=== PATIENT | female | born 1990 | race Caucasian/White ===

== ENCOUNTER 2020-11-03 07:40 | Outpatient (REF) | payer OTHER, SELFPAY | END 2020-11-03 07:41 | disposition home or self-care (01) | LOC: HO.LAB 07:40 | PROVIDERS: Visit Provider Internal Medicine | DX: Z20.828 Contact with and (suspected) exposure to other viral communicable diseases (principal) | CPT/HCPCS: C9803; U0003 ==

== ENCOUNTER 2020-12-01 08:18 | Outpatient (REF) | payer OTHER, SELFPAY | END 2020-12-01 08:19 | disposition home or self-care (01) | LOC: HO.LAB 08:18 | PROVIDERS: Visit Provider Internal Medicine | DX: Z20.822 Contact with and (suspected) exposure to COVID-19 (principal) | CPT/HCPCS: 36415; C9803; U0003 ==

== ENCOUNTER 2021-01-19 08:07 | Outpatient (REF) | payer OTHER, SELFPAY | END 2021-01-19 08:08 | disposition home or self-care (01) | LOC: HO.LAB 08:07 | PROVIDERS: Visit Provider Internal Medicine | DX: Z20.822 Contact with and (suspected) exposure to COVID-19 (principal) | CPT/HCPCS: 36415; C9803; U0003; U0005 ==

== ENCOUNTER 2022-08-04 10:25 | Outpatient (REF) | payer OTHER, SELFPAY ==
[2022-08-04 11:15] LABS: COVID-19 Test Positive (Negative); IDNOW Serial# 55D5AD1C
== END 2022-08-04 10:26 | disposition home or self-care (01) ==
LOC: HO.LAB 10:25
PROVIDERS: Visit Provider Internal Medicine
DX: Z20.822 Contact with and (suspected) exposure to COVID-19 (principal)
CPT/HCPCS: 87635; C9803

== ENCOUNTER 2024-09-27 10:38 | Emergency (ER) | payer OTHER, SELFPAY ==
--- NOTE | 2024-09-27 | ECG_ITS ---
Test Reason : ABDOMINAL PAIN Blood Pressure : / mmHG Vent. Rate : 080 BPM Atrial Rate : 080 BPM P-R Int : 152 ms QRS Dur : 082 ms QT Int : 376 ms P-R-T Axes : 048 033 012 degrees QTc Int : 433 ms Normal sinus rhythm Cannot rule out Anterior infarct , age undetermined Abnormal ECG No previous ECGs available Referred By: Dee Barton Electronically Signed By:ROBERTO NAPIER
--- NOTE | ~2024-09-27 | US_ITS ---
EXAMINATION: US ABDOMEN LIMITED CLINICAL INFORMATION: Right upper quadrant pain. COMPARISON: None available. TECHNIQUE: Real-time imaging of the right upper quadrant abdominal viscera. FINDINGS: PANCREAS: The tail of the pancreas associated with overlying bowel gas. The visualized pancreas appears unremarkable. LIVER: The liver is normal in size. The liver contour is normal. Parenchymal echogenicity is normal. No focal hepatic lesion. There is no intrahepatic biliary duct dilatation seen. GALLBLADDER: The gallbladder is physiologically distended without evidence of stones, sludge, polyps, wall thickening or pericholecystic fluid. COMMON BILE DUCT: Normal in caliber measuring 0.2 cm in diameter. RIGHT KIDNEY: No hydronephrosis. No renal calculi or focal parenchymal lesions. The kidney measures 12.3 cm in maximum dimension. FREE FLUID: None. US/US abdomen limited IMPRESSION: No cholelithiasis or sonographic evidence of acute cholecystitis. Electronically signed by: Ezequiel Faulkner MD 09/27/2024 01:14 PM EDT
[2024-09-27 10:41] VITALS: BP 130/100; PULSE 91; O2SAT 99
--- NOTE | 2024-09-27 12:32 | ED.GENADULT ---
HPI - General Adult General Chief complaint: Abdominal Pain Stated complaint: ABD PAIN X3D,N/V PER EMS Time Seen by Provider: 09/27/24 17:55 Source: patient and RN notes reviewed Mode of arrival: ambulatory Limitations: no limitations History of Present Illness ED Provider: Dee Barton PA-C HPI narrative: This is a 34-year-old female who presents emergency department with complaints of acute onset of upper abdominal pain with an episode of nausea and vomiting. Patient states that she was sitting work when she suddenly developed epigastric pain, nausea and vomited once. She states that the pain initially was a 10/10 pain which was constant for several hours however alleviated down to a 7/10. She reports that she had a similar episode several days ago which resolved after taking meclizine. She denies any fevers, chills, diarrhea, chest pain, shortness of breath. Denies any urinary symptoms. No bloody or black stool. No urinary symptoms No other complaints or concerns at this time. MD complaint: Abdominal Onset (ago): hour(s) Quality: aching Relieving factors: none Exacerbating factors: none Associated symptoms: denies other symptoms Treatments prior to arrival: none Related Data Previous Rx's ?Medication ?Instructions ?Recorded aluminum-mag hydroxide-simethicone 5 ml PO 5XD #300 mL 09/27/24 200 mg-200 mg-20 mg/5 mL oral susp (Maalox Advanced) omeprazole 20 mg capsule,delayed 20 mg PO DAILY 2 weeks #14 caps 09/27/24 release Allergies Allergy/AdvReac Type Severity Reaction Status Date / Time No Known Allergies Allergy Verified 09/27/24 12:35 Review of Systems Review of Systems: Yes all other systems are reviewed and are negative Constitutional: Constitutional: Reports as per HPI [facility] Past Medical History Attestation statement: The following information was validated with the patient. Social History Social History Alcohol intake: never Smoked in Last 30 Days: No Use of substances other than those prescribed or required for medical reasons: No Advance Directives: No Advance Directives Information Provided: Yes Physical Exam ED Vital Signs: Vital Signs - 24 hr 09/27/24 12:33 09/27/24 16:55 09/27/24 17:57 Temperature 98.4 F 96.6 F L 98 F Pulse Rate 85 87 73 Respiratory Rate 16 16 18 Blood Pressure 112/72 119/65 125/72 Pulse Oximetry 100 100 97 Oxygen Delivery Method Room Air Room Air Room Air 09/27/24 20:24 Temperature 97.7 F Pulse Rate 75 Respiratory Rate 20 Blood Pressure 121/79 Pulse Oximetry 98 Oxygen Delivery Method Room Air BMI result Body Mass Index 31.9 Const General: cooperative, comfortable and no acute distress Orientation/consciousness: patient oriented x3 Limitations: no limitations HENMT Head: Yes normal to inspection, Yes normocephalic and Yes atraumatic Ears: hearing grossly normal bilaterally General nose exam: Normal external nose present Face and sinus: Yes normal facial exam Mouth: Normal oral and palatal mucosa present, oropharynx normal and moist mucous membranes Throat: Yes posterior oropharynx normal Eyes General: appearance normal, both eyes and all related structures Eyelids: Yes eyelids normal Conjunctivae: conjunctivae normal Sclerae: sclerae normal Pupils: Equal, round and reactive pupils present EOM: EOMs intact bilaterally Neck Neck: Yes normal visual inspection, Yes full ROM and Yes no lymphadenopathy Lymphatic: no lymphadenopathy noted Chest Chest palpation & inspection: normal inspection of the chest Resp Effort & Inspection: normal respiratory effort and able to speak in complete sentences Auscultation: clear to auscultation bilaterally, no crackles, no rales, no rhonchi and no wheezes Cardio Rate: regular rate Rhythm: regular rhythm Heart sounds: S1 normal heart sound present and S2 normal heart sound present GI Other: Abdomen is soft, with tenderness palpation in the epigastrium, no right upper quadrant pain, no other tenderness palpation. No suprapubic tenderness, no rebound or guarding Inspection: Yes normal to inspection Skin General skin exam: no rashes or lesions noted Trauma: no lacerations or abrasions Wounds: no wounds Neuro General: patient oriented x3 and moves all extremities Cranial nerves: Yes Equal, round and reactive pupils present Extrem General: Yes normal to inspection Right upper extremity: normal to inspection Left upper extremity: normal to inspection Right lower extremity: normal to inspection Left lower extremity: normal to inspection Course Course Course Narrative: RME, this is a rapid medical exam performed by Demond Gill please refer to primary provider for complete H&P- 34 year old female presents for evaluation of upper abdominal pain that radiates through to the back. Symptoms started a couple of days ago. She has associated nausea, vomiting. No fevers or chills. Plan for labs including lipase. We will start with right upper quadrant ultrasound. Will defer any further advanced imaging to primary ER provider Reevaluation(s) Reevaluation #1: Ultrasound reviewed, no acute findings. Discussed with patient. She was medicated with a GI cocktail. Reevaluation #2: Patient re-evaluated, feeling much better, her symptoms have resolved after drinking GI cocktail. Symptoms consistent with gastritis. Discussed strict return precautions. She understands agrees with plan. Patient stable for discharge. Medications Administered Discontinued Medications Generic Name Dose Route Start Last Admin Trade Name Freq PRN Reason Stop Dose Admin Al Hydroxide/Mg Hydroxide 30 ml 09/27/24 18:06 09/27/24 18:27 Magnesium Hydrox/Alum Hydrox 30 Ml Oral.Susp PO 09/27/24 18:07 30 ml ONCE ONE Administration Belladonna Alkaloids/Phenobarbital 10 ml 09/27/24 18:06 09/27/24 18:27 Phenobarb/Hyoscy/Atropine/Scop 10 Ml Elixir PO 09/27/24 18:07 10 ml ONCE ONE Administration Lidocaine HCl 15 ml 09/27/24 18:06 09/27/24 18:27 Lidocaine Hcl Viscous 2 % 15 Ml Solution MUCOUS MEM 09/27/24 18:07 15 ml ONCE ONE Administration Medical Decision Making Medical Decision Making [facility] Narrative: This is a 34-year-old female who presents emergency department with complaints of epigastric pain for the last several hours. She also endorses nausea and 1 episode of vomiting. On arrival, vital signs within normal limits, she is speaking full sentences under no acute distress. Abdomen is soft with tenderness palpation in the epigastrium, no rebound or guarding. Differential diagnoses include cholecystitis, cholangitis, gastritis, gastroenteritis. Less likely ACS. Plan: Labs, EKG, ultrasound Differential Diagnosis Differential Diagnoses: The differential diagnosis associated with the presentation includes See above Admission/Observation Consideration of admission/observation: Escalation of care including admission/observation considered Observation care revealed that the patient [does or does not meet] medical necessity for hospitalization. Final disposition discussed with the patient. The patient completed observation care at [time], total time in observation care was [hours] Lab Data [facility] Lab Attestation statement: I reviewed the patient's lab results. No leukocytosis, stable H&H, chemistry within normal limits, no electrolyte derangement. She is not . Troponin less than 2.7, negative viral swabs 09/27/24 12:40 09/27/24 12:40 Labs: Lab Results 09/27/24 Range/Units 12:40 WBC 8.4 (4.8-10.8) X10*3/uL RBC 4.78 (4.20-5.50) X10*6/uL Hgb 13.5 (12.0-16.0) g/dl Hct 39.7 (37.0-47.0) % MCV 83.1 (80.0-98.0) fL MCH 28.2 (27.0-33.0) pg MCHC 34.0 (31.0-35.0) g/dl RDW 12.3 (11.0-16.0) % Plt Count 329 (160-400) X10*3/uL MPV 9.5 (9.4-12.3) fL Immature Gran % (Auto) 0.2 (0.0-0.4) % Neut % (Auto) 73.0 (45-73) % Lymph % (Auto) 18.9 L (20-40) % [place] % (Auto) 5.3 (2-11) % Eos % (Auto) 2.0 (0-4) % Baso % (Auto) 0.6 (0-2) % Lymph # (Auto) 1.6 (1.2-4.9) X10*3/uL [place] # (Auto) 0.4 (0.1-1.2) X10*3/uL Eos # (Auto) 0.2 (0.0-0.4) X10*3/uL Baso # (Auto) 0.1 (0.0-0.2) X10*3/uL Abs Immat Gran (auto) 0.02 (0.00-0.03) X10*3/uL Absolute Neuts (auto) 6.1 (2.0-8.3) x10*3/uL Absolute Nucleated RBC 0.000 (0.0-0.012) X10*3/uL Nucleated RBC % (auto) 0.0 (0.0-0.2) /100WBC Sodium 139 (135-145) mmol/L Potassium 4.2 (3.3-5.1) mmol/L Chloride 109 H (96-108) mmol/L Carbon Dioxide 23 (22-29) mmol/L Anion Gap 11 L (12-20) BUN 8 L (9-16) mg/dL Creatinine 0.68 (0.5-1.4) mg/dL Estim Creat Clear Calc 116.8 Estimated GFR > 60 Random Glucose 88 (60-115) mg/dL Calcium 9.6 (8.4-10.2) mg/dL Total Bilirubin 0.3 (0.0-1.0) mg/dL AST 21 (5-31) U/L ALT 15 (0-31) U/L Alkaline Phosphatase 63 (39-117) U/L Troponin I High Sens < 2.7 (<3.5-17.0) ng/L Total Protein 8.0 (6.5-8.0) g/dL Albumin 4.4 (3.5-5.0) g/dL Lipase 33 (8-78) U/L Beta HCG, Quant < 2 mIU/mL Influenza Type A (PCR) NEGATIVE (Negative) Influenza Type B (PCR) NEGATIVE (Negative) RSV RNA Qual (PCR) NEGATIVE (Negative) SARS-CoV-2 RNA (RT-PCR) NEGATIVE (Negative) Radiology Impression Discussion of test interpretation with radiology: I have reviewed the radiologist's reading. Radiologist Impression: US/US abdomen limited IMPRESSION: No cholelithiasis or sonographic evidence of acute cholecystitis. Electronically signed by: Ezequiel Faulkner MD 09/27/2024 01:14 PM EDT Dictated By: Ezequiel Faulkner Discharge Plan Discharge Clinical Impression: Abdominal pain Patient Disposition: Home, Self-Care Instructions: Abdominal Pain (ED) Additional Instructions: You were seen in the emergency department due to abdominal pain. Please stick to a bland diet over the next several days. Avoid spicy or fried food. Take omeprazole as prescribed. Take this for 2 weeks 30 minutes before eating in the morning. Maalox can be used for pain, only take as needed. Follow-up with your primary care physician. If any new or worsening symptoms occur including but not limited to worsening pain, chest pain, shortness of breath, please seek emergent care. Prescriptions: New omeprazole 20 mg capsule,delayed release(/EC) 20 mg PO DAILY 14 Days Qty: 14 0RF alum-mag hydroxide-simeth [Maalox Advanced] 200-200-20 mg/5 mL suspension 5 ml PO 5XD Qty: 300 0RF Rx Instructions: administer between meals and at bedtime Interventions: ED Discharge Assessment Last Done: 09/27/24 20:24 Discharge Date/Time: 09/27/24 20:25 Print Language: [place]an
[2024-09-27 12:33] VITALS: BP 112/72; PULSE 85; RESP 16; TEMP 36.9; O2SAT 100; BMI 31.9
[2024-09-27 12:44] LABS: MANUAL DIFF FLAG NO
[2024-09-27 12:45] LABS: Basophils Absolute Auto 0.1 X10*3/uL (0.0-0.2); Basophils Percent Auto 0.6 % (0-2); Eosinophils Absolute Auto 0.2 X10*3/uL (0.0-0.4); Hematocrit 39.7 % (37.0-47.0); Hemoglobin 13.5 g/dl (12.0-16.0); Imm Gran Abs Auto 0.02 X10*3/uL (0.00-0.03); Imm Gran Pct Auto 0.2 % (0.0-0.4); Lymphocytes Absolute Auto 1.6 X10*3/uL (1.2-4.9); Lymphocytes Percent Auto 18.9 % (20-40); Mean Corpuscular Hemoglobin 28.2 pg (27.0-33.0); Mean Corpuscular Volume 83.1 fL (80.0-98.0); Mean Platelet Volume 9.5 fL (9.4-12.3); Monocytes Absolute Auto 0.4 X10*3/uL (0.1-1.2); Monocytes Percent Auto 5.3 % (2-11); Neutrophils Absolute Auto 6.1 x10*3/uL (2.0-8.3); Platelet Count 329 X10*3/uL (160-400); Red Blood Count 4.78 X10*6/uL (4.20-5.50); Red Cell Distribution Width 12.3 % (11.0-16.0); White Blood Count 8.4 X10*3/uL (4.8-10.8)
[2024-09-27 13:06] LABS: Alanine Aminotransferase 15 U/L (0-31); Albumin Level 4.4 g/dL (3.5-5.0); Alkaline Phosphatase 63 U/L (39-117); Anion Gap 11 (12-20); Aspartate Amino Transferase 21 U/L (5-31); Bilirubin Total 0.3 mg/dL (0.0-1.0); Blood Urea Nitrogen 8 mg/dL (9-16); Calcium 9.6 mg/dL (8.4-10.2); Carbon Dioxide 23 mmol/L (22-29); Chloride 109 mmol/L (96-108); Creatinine Clr Calc Pharmacy 116.8; Estimated Glomerular Filt Rate > 60; Glucose Random 88 mg/dL (60-115); Lipase 33 U/L (8-78); Potassium 4.2 mmol/L (3.3-5.1); Sodium 139 mmol/L (135-145)
[2024-09-27 13:08] LABS: HCG Quantitative < 2 mIU/mL
[2024-09-27 13:30] LABS: Influenza A PCR NEGATIVE (Negative); Influenza B PCR NEGATIVE (Negative); Resp Syncy Virus RNA Qual PCR NEGATIVE (Negative); SARS COV2 PCR INHOUSE NEGATIVE (Negative)
[2024-09-27 16:55] VITALS: BP 119/65; PULSE 87; RESP 16; TEMP 35.9; O2SAT 100
[2024-09-27 17:57] VITALS: BP 125/72; PULSE 73; RESP 18; TEMP 36.6; O2SAT 97
--- NOTE | 2024-09-27 17:58 | PC.NURSE ---
Patient reports that around 9:30am this morning she had sudden onset upper abdominal pain. States felt nauseous and threw up. states had the pain earlier in the week but it resolved with meclazine. Denies fever,chills, or currently feeling nauseous
[2024-09-27] MEDS: Lidocaine HCl Viscous 2 % 15 ML SOLUTION MUCOUS MEM (18:27)
[2024-09-27] MEDS: PHENobarb/Hyoscy/Atropine/Scop 10 ML ELIXIR PO (18:27)
[2024-09-27] MEDS: Magnesium Hydrox/Alum Hydrox 30 ML ORAL.SUSP PO (18:27)
[2024-09-27 18:45] LABS: Troponin-I High Sensitivity < 2.7 ng/L (<3.5-17.0)
--- NOTE | 2024-09-27 20:23 | PC.NURSE ---
Reviewed discharge instructions with pt, pt verbalized understanding, pt denies any pain upon discharge, pt denies any sob or chest pain, pt able to ambulate with a steady gait.
[2024-09-27 20:24] VITALS: BP 121/79; PULSE 75; RESP 20; TEMP 36.5; O2SAT 98
== END 2024-09-27 20:25 | disposition home or self-care (01) ==
PROVIDERS: Physician Assistant; Physician Assistant Medical; Emergency Provider Emergency Medicine
DX: R10.11 Right upper quadrant pain (principal); R11.2 Nausea with vomiting, unspecified; R10.13 Epigastric pain; Z03.818 Encounter for observation for suspected exposure to other biological agents ruled out
CPT/HCPCS: 0241U; 36415; 76705; 80053; 83690; 84484; 84702; 85025; 93005; 99283; 99285

== ENCOUNTER → 2024-09-27 18:26 | Outpatient (BNV) | payer OTHER, SELFPAY | PROVIDERS: Emergency Provider Emergency Medicine; Visit Provider Internal Medicine | DX: R94.31 Abnormal electrocardiogram [ECG] [EKG] (principal); R10.9 Unspecified abdominal pain | CPT/HCPCS: 93010 ==